=== PATIENT | female | born 1960 ===

== ENCOUNTER 2017-09-06 10:00 | Day surgery (SDC) | payer MEDICAID ==
[2017-09-06 10:50] VITALS: PULSE 83
--- NOTE | 2017-09-06 11:57 | PDGENHP ---
History & Physical Chief Complaint: hx colon cancer History of Present Illness: hx colon cancer 1 year ago Pertinent Past, Social, Family History: reviewed Relevant Physical Exam: nad. rrr. clear Cardiorespiratory Assessment: see above
[2017-09-06] MEDS ORDERED: PROPOFOL/EMULSION 500 MG/50 ML BOTTLE IV ONE (12:04)
[2017-09-06] MEDS ORDERED: MIDAZOLAM 2 MG/2 ML VIAL ONE (12:04)
[2017-09-06] MEDS ORDERED: LR 1,000 ML IV ONE (12:05)
[2017-09-06] MEDS ORDERED: LIDOCAINE 2% 5 ML SDV ONE (12:05)
--- NOTE | 2017-09-06 12:16 | PDANEPAE ---
ANE History of Present Illness colonoscopy ANE Past Medical History - Cardiovascular History Hx Hypertension: No Hx Arrhythmias: No Hx Chest Pain: No Hx Coronary Artery / Peripheral Vascular Disease: No Hx CHF / Valvular Disease: No Hx Palpitations: No Cardiovascular History Comment: swelling to ankles- uses lasix prn - Pulmonary History Hx COPD: No Hx Asthma/Reactive Airway Disease: No Hx Recent Upper Respiratory Infection: No Hx Oxygen in Use at Home: Yes O2 in Use at Home (L/minute): 2l at noc with cpap Hx Sleep Apnea: Yes Sleep Apnea Screening Result - Last Documented: Positive Pulmonary History Comment: JEAN-CLAUDE POSITIVE USES CPAP AND O2- instructed pt to bring to hospital - Neurologic History Hx Cerebrovascular Accident: No Hx Seizures: No Hx Dementia: No - Endocrine History Hx Diabetes: No - Renal History Hx Renal Disorders: No - Liver History Hx Hepatic Disorders: No - Neurological & Psychiatric Hx Hx Neurological and Psychiatric Disorders: No - Cancer History Hx Cancer: No - Congenital Disorder History Hx Congenital Disorders: No - GI History Hx Gastrointestinal Disorders: Yes Gastrointestinal History Comment: colon resection 06/2017 for polyps - Other Health History Other Health History: none - Chronic Pain History Chronic Pain: No - Surgical History Prior Surgeries: 06/2016 colon resection following colonoscopy. RUPTURED APPY 2011 ANE Review of Systems Review of Systems: - Exercise capacity METS (RN): 4 METS ANE Patient History - Allergies Allergies/Adverse Reactions: No Known Allergies Allergy (Verified 08/22/17 11:35) - Home Medications Home Medications: Furosemide 06/14/16 [Last Taken 09/01/17] Potassium Chloride 08/22/17 [Last Taken 09/02/17] - NPO status NPO Since - Liquids (Date): 09/06/17 NPO Since - Liquids (Time): 03:00 NPO Since - Solids (Date): 09/05/17 NPO Since - Solids (Time): 08:00 - Anes Hx Anes Hx: no prior problems - Smoking Hx Smoking Status: Former smoker - Family Anes Hx Family Hx Anesthesia Complications: NONE ANE Labs/Vital Signs - Vital Signs Blood Pressure: 119/72 Heart Rate: 83 Respiratory Rate: 16 O2 Sat (%): 93 Height: 167.64 cm Weight: 145.15 kg ANE Physical Exam - Airway Mallampati Score: Class 2 Mouth exam: normal dental/mouth exam - Pulmonary Pulmonary: no respiratory distress - Cardiovascular Cardiovascular: regular rate and rhythym - ASA Status ASA Status: III ANE Anesthesia Plan Anesthesia Plan: GA with mask, MAC
[2017-09-06] MEDS ORDERED: ONDANSETRON 4 MG/2 ML VIAL IVP PRN (12:34)
[2017-09-06] MEDS ORDERED: fentaNYL 100 MCG/2 ML INJ IVP PRN (12:34)
[2017-09-06] MEDS ORDERED: NALOXONE HCL 0.4 MG/ML INJ IVP PRN (12:34)
[2017-09-06] MEDS ORDERED: LR 500 ML IV PRN (12:34)
[2017-09-06] MEDS ORDERED: ALBUTEROL 3 ML DEYVIAL IH PRN (12:34)
--- NOTE | 2017-09-06 12:34 | POSTANESTH ---
Post Anesthetic Evaluation Cardiovascular Status: Normal, Stable Respiratory Status: Normal, Stable Level of Consciousness/Mental Status: Can Participate in Eval Pain Control: Adequate, Prn Tx Ordered Nausea/Vomiting Control: Adequate, Prn Tx Ordered Complications Possibly Related to Anesthesia: None Noted
--- NOTE | 2017-09-06 12:41 | GIREPORT ---
[facility] [place] Surgical Services - Endoscopy Department Patient Name: Bonita Rowe Procedure Date: 09/06/2017 11:53 AM Patient Type: Outpatient Attending / ER Physician: Sung Jimenez MD Procedure: Colonoscopy Indications: High risk colon cancer surveillance: Personal history of colon cancer s /p resection 06/2016 Providers: Sung Jimenez MD Medicines: Propofol per Anesthesia Complications: No immediate complications. Description of Procedure: After obtaining informed consent, the scope was passed under direct vis ion. Throughout the procedure, the patient's blood pressure, pulse, and oxyg en saturations were monitored continuously. The Colonoscope with irrigatio n channel was introduced through the anus and advanced to the terminal il eum, with identification of the appendiceal orifice and IC valve. The colono scopy was performed without difficulty. The patient tolerated the procedure w ell. The quality of the bowel preparation was excellent. The terminal ileum, ileocecal valve, appendiceal orifice, and rectum were photographed. Findings: The terminal ileum appeared normal. A 1 mm polyp was found in the cecum. The polyp was sessile. The polyp w as removed with a cold biopsy forceps. Resection and retrieval were comple te. A 4 mm polyp was found in the ascending colon. The polyp was flat. The polyp was removed with a cold snare. Resection and retrieval were complete. There was evidence of a prior end-to-end colo-colonic anastomosis in th e recto-sigmoid colon. This was patent and was characterized by healthy appearing mucosa. A few medium-mouthed diverticula were found in the descending colon. Estimated Blood Loss: Estimated blood loss: none. Post Op Diagnosis: - The examined portion of the ileum was normal. - One 1 mm polyp in the cecum, removed with a cold biopsy forceps. Rese cted and retrieved. - One 4 mm polyp in the ascending colon, removed with a cold snare. Res ected and retrieved. - Patent end-to-end colo-colonic anastomosis, characterized by healthy appearing mucosa. Recommendation: - Patient has a contact number available for emergencies. The signs and symptoms of potential delayed complications were discussed with the pat ient. Return to normal activities tomorrow. Written discharge instructions we re provided to the patient. - Resume previous diet. - Continue present medications. - Repeat colonoscopy in 3 years for surveillance. - Await pathology results. - Thank you for allowing me to participate in the care of this patient. Attending Participation: I personally performed the entire procedure. I personally performed the entire procedure without the assistance of a fellow, resident or cardiovascular surgical tech. Sung Jimenez MD Sung Jimenez MD 09/06/2017 12:41:12 PM This report has been signed electronicallySung Jimenez MD Number of Addenda: 0 Note Initiated On: 09/06/2017 11:53 AM Total Procedure Duration Time 0 hours 14 minutes 57 seconds [email or web address]
[2017-09-06 13:33] VITALS: BP 119/68; RESP 16; TEMP 98.2; O2SAT 96
== END 2017-09-06 13:45 | disposition home or self-care (01) ==
LOC: FSGY 10:00
PROVIDERS: ATTEND Internal Medicine
PROC: 0DBK8ZX Excision of Ascending Colon, Via Natural or Artificial Opening Endoscopic, Diagnostic (ICD-10-PCS; principal; 2017-09-06 12:00)
DX: D12.2 Benign neoplasm of ascending colon (principal); Z85.038 Personal history of other malignant neoplasm of large intestine; Z86.010 Personal history of colon polyps; G47.33 Obstructive sleep apnea (adult) (pediatric); Z87.891 Personal history of nicotine dependence
CPT/HCPCS: J2250; J2704